=== PATIENT | male | born 1990 ===

== ENCOUNTER 2016-04-30 10:19 | Emergency (ER) | payer SELFPAY ==
--- NOTE | 2016-04-30 11:22 | C.PDOC ---
History Of Present Illness 26 y/o male presents for staple removal from scalp, placed 04/22/16 at another facility. Time Seen by Provider: 04/30/16 10:59 Chief Complaint (Nursing): Suture/Staple Removal Location Of Injury: Right: Head, Anterior: Head Quality Of Symptoms: Painful Severity: Mild Pain Scale Rating Of: 5 Past Medical History Reviewed: Historical Data, Nursing Documentation, Vital Signs Vital Signs: Last Vital Signs Temp 97.6 F 04/30/16 10:46 Pulse 60 04/30/16 10:46 Resp 20 04/30/16 10:46 BP 120/84 04/30/16 10:46 Pulse Ox 98 04/30/16 11:29 - Medical History PMH: No Chronic Diseases Surgical History: No Surg Hx Family History: States: Unknown Family Hx - Social History Hx Tobacco Use: No Hx Alcohol Use: No Hx Substance Use: No Review Of Systems Constitutional: Negative for: Fever, Chills Skin: Positive for: Other (healed scalp laceration) Neurological: Negative for: Weakness, Numbness Physical Exam - Physical Exam Appears: Non-toxic, No Acute Distress Skin: Normal Color, Warm, Dry, Other (healed laceration with delano to right frontal area, overlying scabs. no erythema, redness or warmth) ED Course And Treatment O2 Sat by Pulse Oximetry: 98 Medical Decision Making Medical Decision Making: staple removal Disposition Counseled Patient/Family Regarding: Diagnosis, Need For Followup - Disposition Disposition: HOME/ ROUTINE Disposition Time: 11:29 Condition: GOOD Forms: General Discharge Instructions - Clinical Impression Clinical Impression: Encounter for removal of delano Suture Removal/Wound Check - Time Time: 11:27 - Historian Historian: Patient, Family - Chief Complaints Chief complaint: Suture removal - Treated at Date of Last ED visit:: 04/22/16 Procedure:: Laceration repair, Tetanus Immunization, UTD Antibiotics prescribed:: No Other:: 6 delano removed, with no complications - Symptoms since last ED visit Symptoms since last ED visit:: None - Location Right/Left:: head
[2016-04-30 11:41] VITALS: BP 128/84; PULSE 68; RESP 16; TEMP 97.9; O2SAT 96
== END 2016-04-30 11:30 | disposition home or self-care (01) ==
LOC: C.ER 10:19
DX: Z48.02 Encounter for removal of sutures (principal)

== ENCOUNTER 2016-06-23 12:50 | Emergency (ER) | payer SELFPAY ==
[2016-06-23 13:13] VITALS: BMI 28.7
[2016-06-23 13:16] VITALS: BP 117/78; PULSE 70; RESP 18; TEMP 97.6; O2SAT 98
--- NOTE | 2016-06-23 15:03 | C.PDOC ---
History Of Present Illness 26 yr old male presents to the ER with complaints of itchiness and yellow discharge from the right eye for day and from the left eye since this morning. Patient reports he wears contact lens. Patient denies trauma, fever, chills, vision changes, nausea, vomiting, neck pain, headache, weakness or numbness. Time Seen by Provider: 06/23/16 13:20 Chief Complaint (Nursing): Eye Problem History Per: Patient History/Exam Limitations: no limitations Onset/Duration Of Symptoms: Days (1) Injury To Eye?: No Wears Contact Lens?: Yes Recent travel outside of the [place]: No Past Medical History Reviewed: Historical Data, Nursing Documentation, Vital Signs Vital Signs: Last Vital Signs Temp 97.6 F 06/23/16 13:13 Pulse 70 06/23/16 13:13 Resp 18 06/23/16 13:13 BP 117/78 06/23/16 13:13 Pulse Ox 98 06/23/16 15:05 - Medical History PMH: Asthma Family History: States: No Known Family Hx - Social History Hx Tobacco Use: No Hx Alcohol Use: Yes Hx Substance Use: No - Immunization History Hx Tetanus Toxoid Vaccination: Yes Hx Influenza Vaccination: Yes Hx Pneumococcal Vaccination: No Review Of Systems Except As Marked, All Systems Reviewed And Found Negative. Constitutional: Negative for: Fever, Chills Eyes: Positive for: Other (Itchiness an dyellow dischagre from both eyes ). Negative for: Vision Change Gastrointestinal: Negative for: Nausea, Vomiting Musculoskeletal: Negative for: Neck Pain Neurological: Negative for: Weakness, Numbness, Headache Physical Exam - Physical Exam Appears: Well, Non-toxic, No Acute Distress Skin: Warm, Dry, No Rash Head: Atraumatic, Normacephalic Eye(s): bilateral: PERRL, EOMI, Other (Conjunctival injection. Yellow discharge noted to the medial aspect ) Oral Mucosa: Moist Extremity: Normal ROM, No Swelling Neurological/Psych: Oriented x3, Normal Speech, Normal Motor ED Course And Treatment O2 Sat by Pulse Oximetry: 98 Disposition - Disposition Referrals: [facility] [Outside] [facility] [Outside] Disposition: HOME/ ROUTINE Disposition Time: 12:15 Condition: GOOD Additional Instructions: Thank you for letting us take care of you today. Your provider was Dr. Mancuso. You were treated for conjunctivitis. The emergency medical care you received today was directed at your acute symptoms. If you were prescribed any medication, please fill it and take as directed. It may take several days for your symptoms to resolve. Return to the Emergency Department if your symptoms worsen, do not improve, or if you have any other problems. Please contact your doctor or call one of the physicians/clinics you have been referred to that are listed on the Patient Visit Information form that is included in your discharge packet. Bring any paperwork you were given at discharge with you along with any medications you are taking to your follow up visit. Our treatment cannot replace ongoing medical care by a primary care provider (PCP) outside of the emergency department. Thank you for allowing the [facility] team to be part of your care today. Follow up with the clinic in 3-4 days to be re-evaluated. Prescriptions: Polymyxin/Trimethoprim Sulfate [Polytrim Ophth Soln] 1 drop OU Q4 #1 bottle Instructions: Conjunctivitis (ED) - Clinical Impression Clinical Impression: Conjunctivitis - Scribe Statement The provider has reviewed the documentation as recorded by the Jama Carranza Provider Attestation: All medical record entries made by the Jama were at my direction and personally dictated by me. I have reviewed the chart and agree that the record accurately reflects my personal performance of the history, physical exam, medical decision making, and the department course for this patient. I have also personally directed, reviewed, and agree with the discharge instructions and disposition.
== END 2016-06-23 13:53 | disposition home or self-care (01) ==
LOC: EDBD → C.ER 12:50
DX: H10.9 Unspecified conjunctivitis (principal)

== ENCOUNTER 2016-09-19 12:50 | Emergency (ER) | payer OTHER ==
[2016-09-19 12:55] VITALS: BP 127/81; PULSE 67; RESP 18; TEMP 97.6; O2SAT 98
[2016-09-19] MEDS ORDERED: Lidocaine 2% w Epi 1:100,000 Inj IJ ONE (13:39)
[2016-09-19] MEDS ORDERED: Tmp-Smz 800 mg-160 mg DS Tab PO STA (13:57)
--- NOTE | 2016-09-19 14:00 | C.PDOC ---
History Of Present Illness 09/19/2016 Juan Manuel Camacho is a 27 year old male, whose past medical history includes asthma, presents to the emergency department complaining of pain on his left axilla with swelling and palpable lump. Patient reports no prior history of this symptom. Patient denies chest pain, shortness of breath, headache, fever, chills , cough, nausea, vomiting, diarrhea, abdominal pain, dizziness or other complaints. Time Seen by Provider: 09/19/16 13:04 Chief Complaint (Nursing): Abnormal Skin Integrity History Per: Patient History/Exam Limitations: no limitations Current Symptoms Are (Timing): Still Present Location Of Injury: Left: Arm (left axilla lump) Quality Of Symptoms: Swollen Past Medical History Reviewed: Historical Data, Nursing Documentation, Vital Signs Vital Signs: Last Vital Signs Temp 97.6 F 09/19/16 12:54 Pulse 67 09/19/16 12:54 Resp 18 09/19/16 12:54 BP 127/81 09/19/16 12:54 Pulse Ox 98 09/19/16 15:02 - Medical History PMH: Asthma Family History: States: No Known Family Hx - Social History Hx Alcohol Use: No Hx Substance Use: No - Immunization History Hx Tetanus Toxoid Vaccination: No Hx Influenza Vaccination: No Hx Pneumococcal Vaccination: No Review Of Systems Except As Marked, All Systems Reviewed And Found Negative. Constitutional: Negative for: Fever Cardiovascular: Negative for: Chest Pain Respiratory: Negative for: Shortness of Breath Gastrointestinal: Negative for: Vomiting, Abdominal Pain Musculoskeletal: Positive for: Other (pain on left axilla) Skin: Positive for: Other (abscess on left axilla) Physical Exam - Physical Exam Appears: Well, No Acute Distress Skin: Normal Color, Warm, Dry, Other (abscess on left axilla ) Eye(s): bilateral: Normal Inspection, PERRL, EOMI Nose: Normal Throat: Normal Neck: Normal Cardiovascular: Rhythm Regular Respiratory: Normal Breath Sounds Gastrointestinal/Abdominal: Normal Exam Back: Normal Inspection Extremity: Normal ROM Neurological/Psych: Oriented x3, Normal Speech, Normal Motor, Normal Sensation ED Course And Treatment O2 Sat by Pulse Oximetry: 98 (room air) Pulse Ox Interpretation: Normal Reassessment Condition: Improved - Incision & Drainage Of Abscess Anesthesia: Lidocaine 2%, With Epi Prep Used: Betadine Procedure: Incised W/Scalpel Blade#: (11), Drained Pus, Irrigated Cavity W/ Saline, Probed To Break Up Loculations, Packed W/Gauze, Cultures Obtained And Sent To Lab Medical Decision Making Medical Decision Makin09/19/2016 Plans: -- Bactrim -- Keflex Progress Notes: Patient was instructed to come back in two days for follow up of procedure. More information of procedure found on (procedure note). Disposition - Disposition Disposition: HOME/ ROUTINE Disposition Time: 13:58 Condition: STABLE Additional Instructions: Follow up with your PMD within 2-3 days. Return to Ed for wound check and dressing change in 2 days. Return to Ed immediately if feel worse. Prescriptions: Sulfamethoxazole/Trimethoprim [Bactrim DS 800 mg-160 mg] 1 tab PO BID #14 tab Cephalexin [cephalexin] 500 mg PO Q6 #28 cap traMADol [Ultram] 50 mg PO Q6 #30 tab Instructions: Abscess Incision and Drainage (ED) Forms: [employer] [facility] (Vincentian), Work Excuse - Clinical Impression Clinical Impression: Abscess
[2016-09-19] MEDS ORDERED: Tmp-Smz 800 mg-160 mg DS Tab ONE (14:04)
== END 2016-09-19 14:07 | disposition home or self-care (01) ==
LOC: C.ER 12:50 → MERGE 12:50 → C.ER 14:07
DX: L02.412 Cutaneous abscess of left axilla (principal); B96.89 Other specified bacterial agents as the cause of diseases classified elsewhere

== ENCOUNTER 2016-09-21 08:44 | Emergency (ER) | payer OTHER ==
[2016-09-21 08:59] VITALS: RESP 16; TEMP 97.5
--- NOTE | 2016-09-21 09:19 | C.PDOC ---
History Of Present Illness 27 yr old male presents to the ER for wound evaluation. patient reports he had a I&D 2 days ago for an abscess in the left axilla, which was drained with blood , no puss. Patient was started on antibiotics and told to return for a check up. Patient states the area moe and increases with movement. Patient denies fever, chills, chest pain, radiating of pain, nausea or vomiting. Time Seen by Provider: 09/21/16 09:08 Chief Complaint (Nursing): Wound Check History Per: Patient History/Exam Limitations: no limitations Onset/Duration Of Symptoms: Days Ago (2) Current Symptoms Are (Timing): Still Present Past Medical History Reviewed: Historical Data, Nursing Documentation, Vital Signs Vital Signs: Last Vital Signs Temp 97.5 F L 09/21/16 08:56 Pulse 68 09/21/16 09:27 Resp 16 09/21/16 09:27 BP 121/75 09/21/16 09:27 Pulse Ox 97 09/21/16 10:11 - Medical History PMH: Asthma Family History: States: No Known Family Hx - Social History Hx Alcohol Use: Yes Hx Substance Use: No - Immunization History Hx Tetanus Toxoid Vaccination: No (UNKNOWN) Hx Influenza Vaccination: Yes Hx Pneumococcal Vaccination: No Review Of Systems Except As Marked, All Systems Reviewed And Found Negative. Constitutional: Negative for: Fever, Chills Cardiovascular: Negative for: Chest Pain Gastrointestinal: Negative for: Nausea, Vomiting Skin: Positive for: Other ((+) Wound in the left axilla. ) Physical Exam - Physical Exam Appears: Non-toxic, No Acute Distress Skin: Warm, Dry, No Rash, Other ((+) Left Axilla - 2cm incision with packing in place, firm. No drainage. No signs of infections. ) Head: Atraumatic, Normacephalic Extremity: Normal ROM, No Tenderness, Capillary Refill (<2), No Swelling Neurological/Psych: Oriented x3, Normal Speech, Normal Motor ED Course And Treatment O2 Sat by Pulse Oximetry: 97 (RA ) Pulse Ox Interpretation: Normal Medical Decision Making Medical Decision Making: NOTE: Packing was removed from the left axilla. Area was cleaned and redressed in sterile fashion and discharged home. Disposition Counseled Patient/Family Regarding: Diagnosis, Need For Followup, Rx Given - Disposition Referrals: [facility] [Outside] Disposition: HOME/ ROUTINE Disposition Time: 09:17 Condition: STABLE Additional Instructions: Use warm , wet towels to the site of the abscess. Finish your antibiotics. Return to the Emergency Department with any further concerns. Follow up in clinic. Forms: General Discharge Instructions, Work Excuse - POA Present On Arrival: None - Clinical Impression Clinical Impression: Wound check, abscess - Scribe Statement The provider has reviewed the documentation as recorded by the Jama Carranza Provider Attestation: All medical record entries made by the Jama were at my direction and personally dictated by me. I have reviewed the chart and agree that the record accurately reflects my personal performance of the history, physical exam, medical decision making, and the department course for this patient. I have also personally directed, reviewed, and agree with the discharge instructions and disposition.
[2016-09-21 09:28] VITALS: BP 121/75; PULSE 68
[2016-09-21 09:35] VITALS: O2SAT 97
== END 2016-09-21 09:27 | disposition home or self-care (01) ==
LOC: C.ER 08:44 → MERGE 08:44 → C.ER 09:27
DX: Z48.00 Encounter for change or removal of nonsurgical wound dressing (principal)

== ENCOUNTER 2017-05-26 08:28 | Emergency (ER) | payer OTHER ==
[2017-05-26 08:29] VITALS: BMI 28.7
[2017-05-26 08:48] VITALS: BP 127/84; PULSE 88; RESP 20; TEMP 98.2; O2SAT 99
--- NOTE | 2017-05-26 09:31 | C.PDOC ---
History Of Present Illness 28 year old male presents to the ED complaining of a lesion to his right lower leg, onset 2-3 days ago. There is no discharge coming from the wound. Patient reports a history of recurrent abscesses in the past, one to the left axilla requiring I&D and one at the groin he was able to drain at home. Denies any fever or chills. Time Seen by Provider: 05/26/17 09:22 Chief Complaint (Nursing): Abnormal Skin Integrity History Per: Patient History/Exam Limitations: no limitations Onset/Duration Of Symptoms: Days Current Symptoms Are (Timing): Still Present Past Medical History Reviewed: Historical Data, Nursing Documentation, Vital Signs Vital Signs: Last Vital Signs Temp 98.2 F 05/26/17 08:43 Pulse 88 05/26/17 08:43 Resp 20 05/26/17 08:43 BP 127/84 05/26/17 08:43 Pulse Ox 99 05/26/17 09:40 - Medical History PMH: Asthma Surgical History: No Surg Hx Family History: States: Unknown Family Hx - Social History Hx Tobacco Use: No Hx Alcohol Use: No Hx Substance Use: No - Immunization History Hx Tetanus Toxoid Vaccination: Yes (2016) Hx Influenza Vaccination: No Hx Pneumococcal Vaccination: No Review Of Systems Except As Marked, All Systems Reviewed And Found Negative. Constitutional: Negative for: Fever, Chills Skin: Positive for: Lesions (to right lower leg) Physical Exam - Physical Exam Appears: Non-toxic, No Acute Distress Skin: Warm, Dry, Other (5 cm round erythematous lesion to the right lateral lower leg, with indurated center. + Scars noted to left axilla and groin from prior abscesses) Head: Atraumatic, Normacephalic Eye(s): bilateral: Normal Inspection Extremity: Normal ROM, No Calf Tenderness, No Deformity Pulses: Left Dorsalis Pedis: Normal, Right Dorsalis Pedis: Normal Neurological/Psych: Oriented x3, Normal Speech ED Course And Treatment O2 Sat by Pulse Oximetry: 99 (RA) Pulse Ox Interpretation: Normal Medical Decision Making Medical Decision Making: Impression: 28 y/o M with abscess to right lower leg Discussed with patient that I&D is not indicated at this time. Patient advised to apply warm compresses to wound. Patient will be discharged home with antibiotics. Return precautions discussed in detail. Disposition Counseled Patient/Family Regarding: Diagnosis, Rx Given - Disposition Referrals: [facility] [Outside] Disposition: HOME/ ROUTINE Disposition Time: 09:30 Condition: STABLE Additional Instructions: Use warm compress to affected site. Watch for worsting signs of infection. Take antibiotics as indicated. Prescriptions: Cephalexin [Keflex] 500 mg PO TID #40 capsule Instructions: Cellulitis (Skin Infection), Adult (DC) Forms: General Discharge Instructions, [employer] [facility] (Bel[place]ian), Work Excuse - POA Present On Arrival: None - Clinical Impression Clinical Impression: Cellulitis - Scribe Statement The provider has reviewed the documentation as recorded by the Jama Martinez Provider Attestation: All medical record entries made by the Jama were at my direction and personally dictated by me. I have reviewed the chart and agree that the record accurately reflects my personal performance of the history, physical exam, medical decision making, and the department course for this patient. I have also personally directed, reviewed, and agree with the discharge instructions and disposition.
== END 2017-05-26 09:42 | disposition home or self-care (01) ==
LOC: C.ER 08:28
DX: L03.115 Cellulitis of right lower limb (principal)